=== PATIENT | female | born 1970 | race Caucasian/White ===

== ENCOUNTER 2018-04-25 12:25 | Emergency (ER) | payer OTHER, SELFPAY ==
[2018-04-25] MEDS ORDERED: NA CHLORIDE 0.9% 1,000 ML ONE (14:39)
[2018-04-25 15:25] LABS: Absolute Lymphocytes (CBC) 1.7 K/uL (0.7-4.9); Absolute Monocytes 0.5 K/uL (0.1-1.3); Absolute Neutrophil 6.9 K/uL (1.8-8.0); Basophils % 1.3 % (0-1.3); Eosinophils % 3.1 % (0-4.4); Hematocrit 38.5 % (36.0-45.0); Lymphocytes % 17.5 % (15.3-44.8); MCH 29.4 pg (27.0-35.0); MCV 85.1 fL (80-100); MPV 8.8 fL (7.6-11.3); Monocytes % 5.6 % (3.3-12.3); RBC Red Blood Cell Count 4.53 M/uL (3.86-4.86)
[2018-04-25] MEDS ORDERED: HYDROCODONE/APAP 10/325 TAB ONE (15:47)
[2018-04-25 16:02] LABS: BUN Blood Urea Nitrogen 11 mg/dL (7-18); Bicarbonate 31 mmol/L (21-32); Glucose Level 71 mg/dL (74-106); Potassium 4.5 mmol/L (3.5-5.1); Sodium Level 139 mmol/L (136-145); Thyroid Stimulating Hormone 0.818 uIU/mL (0.360-3.740)
--- NOTE | 2018-04-25 16:28 | RAD REPORT ---
EXAM DESCRIPTION: CT - Spine Lumbar Wo Con - 04/25/2018 4:19 pm CLINICAL HISTORY: Radiculopathy. PAIN COMPARISON: No comparisons TECHNIQUE: Axial noncontrast CT imaging of the lumbar spine was performed with coronal and sagittal re-formatted images. All CT scans are performed using dose optimization technique as appropriate and may include automated exposure control or mA/KV adjustment according to patient size. FINDINGS: No acute lumbar spine fracture seen. No aggressive marrow pattern or malalignment. Paraspinal tissues are normal in thickness. No paraspinal abscess or hematoma seen. Prominent facet hypertrophy is present at L5-S1. Mild central canal narrowing is present at this leve l. IMPRESSION: Moderate spondylosis at L5-S1. No acute lumbar spine finding evident.
--- NOTE | 2018-04-25 16:30 | RAD REPORT ---
EXAM DESCRIPTION: CT - Pelvis Wo Cont - 04/25/2018 4:19 pm CLINICAL HISTORY: Trauma;Pain COMPARISON: No comparisons TECHNIQUE: All CT scans are performed using dose optimization technique as appropriate and may inclu de automated exposure control or mA/KV adjustment according to patient size. FINDINGS: No fracture, dislocation or aggressive marrow pattern. Prominent lumbosacral degenerative changes are evident. Sacroiliac joints are preserved. No pelvic mass or free fluid. Small fat containing umbilical hernia. IMPRESSION: No acute abnormality is detected.
--- NOTE | 2018-04-25 16:38 | ER ---
Nurse's Notes [facility] Name: Yancy Posadas Age: 47 yrs Sex: Female : 1970 Arrival Date: 04/25/2018 Time: 12:26 Bed 13 Private MD: Diagnosis: Pain in joint;Low back pain Presentation: 04/25 12:41 Presenting complaint: Patient states: for the past 3 days all of my joints have been la1 hurting and I can barely walk. Pt also reports swelling in extremities. Transition of care: patient was not received from another setting of care. Onset of symptoms was April 25, 2018. Risk Assessment: Do you want to hurt yourself or someone else? Patient reports no desire to harm self or others. Initial Sepsis Screen: Does the patient meet any 2 criteria? No. Patient's initial sepsis screen is negative. Does the patient have a suspected source of infection? No. Patient's initial sepsis screen is negative. Care prior to arrival: None. 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 - Social history:: Smoking status: unknown. - Ebola Screening: : No symptoms or risks identified at this time. Screenin:53 Abuse screen: Denies threats or abuse. Denies injuries from another. Nutritional ch screening: No deficits noted. Tuberculosis screening: No symptoms or risk factors identified. Fall Risk None identified. Assessment: 13:53 Reassessment: No changes from previously documented assessment. Patient and/or family ch updated on plan of care and expected duration. Pain level reassessed. Patient is alert, oriented x 3, equal unlabored respirations, skin warm/dry/pink. General: Appears in no apparent distress. comfortable, Behavior is calm, cooperative, appropriate for age. Pain: Complains of pain in left hip, right hip, anterior aspect of right shoulder, right wrist, posterior aspect of right shoulder, right elbow, anterior aspect of left shoulder, left antecubital area, left wrist, posterior aspect of left shoulder, left elbow, right knee, anterior aspect of right ankle, left knee and anterior aspect of left ankle Pain currently is 8 out of 10 on a pain scale. Pain began suddenly. Neuro: No deficits noted. Respiratory: Airway is patent Respiratory effort is even, unlabored, Breath sounds are clear bilaterally. GI: No signs and/or symptoms were reported involving the gastrointestinal system. Abdomen is round non-distended, Bowel sounds present X 4 quads. Abd is soft and non tender X 4 quads. Derm: No signs and/or symptoms reported regarding the dermatologic system. Skin is pink, warm \T\ dry. 13:57 Musculoskeletal: Capillary refill < 3 seconds, in bilateral fingers. toes. Range of ch motion: intact in all extremities, pt states she is having swelling in all her joints, pain in all the joints, and pain in lower back. pt is morbidly obese, no marked swelling noted, no pitting edema. 15:18 Reassessment: Patient appears in no apparent distress at this time. IV established by messi Dickerson. missed attempts by myself, Samuel, [place], and Jayla. 15:22 Reassessment: pt ambulated to bathroom with steady gait. iw 15:44 Reassessment: Patient appears in no apparent distress at this time. Patient and/or ch family updated on plan of care and expected duration. Pain level reassessed. Patient is alert, oriented x 3, equal unlabored respirations, skin warm/dry/pink. Patient states feeling better. Patient states symptoms have improved. 16:29 Reassessment: Patient appears in no apparent distress at this time. Patient and/or ch family updated on plan of care and expected duration. Pain level reassessed. Patient is alert, oriented x 3, equal unlabored respirations, skin warm/dry/pink. 16:54 Reassessment: Patient appears in no apparent distress at this time. Patient and/or ch family updated on plan of care and expected duration. Pain level reassessed. Patient is alert, oriented x 3, equal unlabored respirations, skin warm/dry/pink. Patient states feeling better. Vital Signs: 12:43 BP 109 / 80; Pulse 115; Resp 18; Temp 98.0; Pulse Ox 97% on R/A; Weight 117.93 kg; la1 Height 5 ft. 5 in. (165.10 cm); 13:53 BP 130 / 82; Pulse 102; Resp 18; Temp 97.9; Pulse Ox 98% on R/A; Pain 8/10; ch 15:18 BP 122 / 71; Pulse 90; Resp 14; Pulse Ox 99% on R/A; Pain 8/10; ch 16:29 BP 136 / 76; Pulse 95; Resp 20; Pulse Ox 99% on R/A; Pain 6/10; ch 16:54 BP 124 / 81; Pulse 84; Resp 16; Temp 98.8; Pulse Ox 99% on R/A; Pain 4/10; ch 12:43 Body Mass Index 43.27 (117.93 kg, 165.10 cm) la1 ED Course: 12:26 Patient arrived in ED. as 12:42 Triage completed. la1 12:43 Arm band placed on right wrist. la1 13:36 [facility]C [facility]. kb 13:36 Wallace Reeves MD is Attending Physician. kb 13:47 Darcy Dallas, GERI is Primary Nurse. ch 13:53 No apparent distress. Resting quietly. ch 13:53 Patient has correct armband on for positive identification. Placed in gown. Bed in low ch position. Call light in reach. Side rails up X2. Adult w/ patient. Pulse ox on. NIBP on. Warm blanket given. Pillow given. 13:53 No provider procedures requiring assistance completed. ch 15:08 Radiology exam delayed due to test not completed at this time. 2 15:18 Missed attempt(s): 22 gauge 24 gauge in left in right wrist. antecubital area. upper ch arm. Bleeding controlled, band aid applied, catheter tip intact. 15:20 Initial lab(s) drawn, by me, sent to lab. Inserted saline lock: 20 gauge in left iw antecubital area, using aseptic technique. Blood collected. 15:32 Urine collected: clean catch specimen, clear, adry colored, Amount Voided: 100mL. jp3 15:34 Flu Sent. jp3 16:[address] via wheelchair. nj 16:19 CT completed. Patient tolerated procedure well. Patient moved back from [place]. nj 16:19 CT Lumbar Spine Wo Con In Process Unspecified. EDMS 16:[address] In Process Unspecified. EDMS 16:55 IV discontinued, intact, bleeding controlled, No redness/swelling at site. Pressure ch dressing applied. Administered Medications: 15:43 Drug: NS 0.9% 1000 ml Route: IV; Rate: 1000 ml; Site: left antecubital; 17:03 Follow up: IV Status: Completed infusion; IV Intake: 1000ml 15:44 Drug: Shannon 10 mg-325 mg 1 tabs Route: PO; 16:30 Follow up: Response: No adverse reaction; Marked relief of symptoms ch Intake: 17:03 IV: 1000ml; Total: 1000ml. Outcome: 16:38 Discharge ordered by . pina 16:55 Discharged to home via wheelchair, with family. 16:55 Condition: stable 16:55 Discharge instructions given to patient, family, Instructed on discharge instructions, follow up and referral plans. medication usage, Demonstrated understanding of instructions, follow-up care, medications. 16:56 Patient left the ED. Signatures: Dispatcher [employer] EDKatie Bess, AHMET-C HOSE TURNER-Darcy Evans RN RN ch Martinez, Amelia as Williams, Irene, RN RN Harpal Waters RN RN Demarco Frank Victoria vm2 Pisarski, Jacob jp3
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
[2018-04-25 19:27] LABS: Urine Blood NEGATIVE (NEG); Urine Glucose NEGATIVE (NEG); Urine Protein NEGATIVE (NEG)
== END 2018-04-25 16:56 | disposition home or self-care (01) ==
LOC: ER 12:25
DX: M25.50 Pain in unspecified joint (principal); M79.662 Pain in left lower leg; M79.661 Pain in right lower leg
CPT/HCPCS: 36415; 72131; 72192; 80048; 81003; 81025; 84439; 84443; 85025; 85652; 86140; 87070; 87081; 87804; 96360; 99284; J7030